=== PATIENT | female | born 1945 | race Caucasian/White ===

== ENCOUNTER 2017-04-06 09:49 | Emergency (ER) | payer MEDICARE, SELFPAY ==
[2017-04-06 10:31] VITALS: BP 152/66; PULSE 85; RESP 18; TEMP 36.8; O2SAT 97; BMI 25.7
--- NOTE | 2017-04-06 10:45 | XR_ITS ---
EXAM: XR lumbar spine min 4V HISTORY: Low back pain following injury ITS.REASON: fell on concrete stairs ORDERING PHYSICIAN: Shin Jo PATIENT AGE: 72 years COMPARISON: None FINDINGS: There is mild lumbar scoliosis convex right. There are severe degenerative disc disease at L1-L2 and moderate to severe degenerative disc disease at L2-L3 with endplate sclerosis and endplate osteophytes. There are slight decrease in height of the L1 vertebral body anteriorly. No fracture or dislocation. No lytic changes apparent. Endplate osteophytes are present at L1-L2 posteriorly and anteriorly IMPRESSION: Degenerative disc disease at L1-L2 and L2-L3. No acute finding
--- NOTE | 2017-04-06 10:45 | XR_ITS ---
XR sacrum coccyx min 2V CLINICAL INDICATION: Pain following injury ITS.REASON: fell on concrete stairs ORDERING PHYSICIAN: Shin Jo PATIENT AGE: 72 years COMPARISON: None FINDINGS: No fracture, dislocation, or other significant anomalies. No abnormal angulation IMPRESSION: Negative sacrum/coccyx
--- NOTE | 2017-04-06 10:45 | XR_ITS ---
XR hip RT 2-3V w/pelvis HISTORY: Posttraumatic pain ITS.REASON: fell on concrete stairs ORDERING PHYSICIAN: Shin Jo PATIENT AGE: 72 years COMPARISON: None FINDINGS: Mild osteoarthritic changes are present involving both hips. No fracture or dislocation. No lytic or blastic change. IMPRESSION: Mild osteoarthritis otherwise negative
--- NOTE | 2017-04-06 10:55 | HMH.EDUTC ---
[facility] [place] Disposition Clinical Impression: Fall from slipping on ice Qualifiers: Encounter type: initial encounter Qualified Code(s): W00.9XXA - Unspecified fall due to ice and snow, initial encounter Contusion, buttock Qualifiers: Encounter type: initial encounter Qualified Code(s): S30.0XXA - Contusion of lower back and pelvis, initial encounter Disposition: Home, Self-Care Condition on Discharge: Good Instructions: DI for Contusion, How To Perform RICE (Rest, Ice, Compress, Elevate) Additional Instructions: * movement as tolerated. Avoid anything too strenous and avoid sitting/laying for prolonged time as it can increase stiffness * you are welcome to return to work tomorrow if you would like but avoid heavy lifting, pulling, pushing, etc * Rest * ice 15-20 mins 3-4 times a day * You don't have to take anything for pain if you don't want/need Referrals: Ab Monreal [Family Provider] - (IMMEDIATELY for new or worsening symptoms OR no noticeable improvement over the next 3-5 days) Forms: Work/School Release Time of Disposition: 12:14 Medical Decision Making Vital Signs: 04/06/17 10:31 Temperature 98.2 F Temperature Source Temporal Artery Scan Pulse Rate [Left] 85 Respiratory Rate 18 Blood Pressure [Right Arm] 152/66 Blood Pressure Mean [Right Arm] 94 Blood Pressure Source [Right Arm] Automatic Cuff Blood Pressure Position [Right Arm] Sitting 02 Sat by Pulse Oximetry 97 Oxygen Delivery Method Room Air Orders (Tests/Meds): ORDERS Category Date Time Status XR hip RT 2-3V w/pelvis Stat Exams 04/06/17 10:45 Taken XR lumbar spine min 4V Stat Exams 04/06/17 10:45 Taken XR sacrum coccyx min 2V Stat Exams 04/06/17 10:45 Taken - Radiology Data #1 Image(s): L-Spine, Hip (right), Other (sacrum/coccyx) Image Reviewed: Yes I reviewed the patient's radiology image, Yes I reviewed the patient's radiology image w/the ED provider Dr. Menendez, DEB GREY and I rvwd xrays and no fractures, dislocations. Arthritis present. Pt admits to that chronically. - Ehsan Inquiry Pt receiving controlled substance: No [facility] [place] HPI - General Stated complaint: AO [id number] RIGHT HIP AND HAND Time Seen by Provider: 04/06/17 10:40 Mode of Arrival: Ambulatory Source of Information: Patient Limitations: No Limitations Description of Symptoms (Recalled from Triage Doc. by RN): FELL AY HOME, RIGHT LOW BACK PAIN HEENT Symptoms (Recalled from RN notes): No Resp Symptoms (Recalled from RN notes): No Skin Symptoms (Recalled from RN notes): No MS Symptoms (Recalled from RN notes): Yes Functional Status (Recalled from RN notes): N - History of Present Illness Provider Complaint: Here w/ daughter in law c/o right low back/hip pain s/p fall this morning around 0830. Reports she was on her way to work. Walked down wood steps without difficulty but when she stepped on last two steps (concrete steps), she slipped, landing she believes with right side of butt on edge of step. Tried bracing fall with right hand. Reports palm and right elbow feel a little sore but FROM and just feels bruised . Here primarily due to back/hip. Does not want imaging of hand/elbow. They will be fine . Has not taken or tried anything for pain. Declines multiple offers already for medication. I don't like to take anything. Just let me shed a few tears and find out if I cracked anything. That is all. - Related Data Home Medications Medication Instructions Recorded Confirmed Lisinopril [Lisinopril 10mg Tab] 10 mg PO DAILY 04/06/17 04/06/17 Meloxicam 15 mg PO DAILY 04/06/17 04/06/17 Allergies Allergy/AdvReac Type Severity Reaction Status Date / Time IV DYE Allergy Mild REDNESS Uncoded 04/06/17 10:36 HYDROCODONE Allergy Unknown CHILDERS/VOMITING Uncoded 03/17/17 15:15 - Worker's Comp Is this a Worker's Comp case?: Yes [facility] History I have reviewed the patient's past medical history: Yes Medical History: Reports:: Aneurysm, Hypertension Other Medical
--- NOTE | 2017-04-06 11:00 | ED_ITS ---
[facility] [place] Disposition Clinical Impression: Fall from slipping on ice Qualifiers: Encounter type: initial encounter Qualified Code(s): W00.9XXA - Unspecified fall due to ice and snow, initial encounter Contusion, buttock Qualifiers: Encounter type: initial encounter Qualified Code(s): S30.0XXA - Contusion of lower back and pelvis, initial encounter Disposition: Home, Self-Care Condition on Discharge: Good Instructions: DI for Contusion, How To Perform RICE (Rest, Ice, Compress, Elevate) Additional Instructions: * movement as tolerated. Avoid anything too strenous and avoid sitting/laying for prolonged time as it can increase stiffness * you are welcome to return to work tomorrow if you would like but avoid heavy lifting, pulling, pushing, etc * Rest * ice 15-20 mins 3-4 times a day * You don't have to take anything for pain if you don't want/need Referrals: Ab Monreal [Family Provider] - (IMMEDIATELY for new or worsening symptoms OR no noticeable improvement over the next 3-5 days) Forms: Work/School Release Time of Disposition: 12:14 Medical Decision Making Vital Signs: 04/06/17 10:31 Temperature 98.2 F Temperature Source Temporal Artery Scan Pulse Rate [Left] 85 Respiratory Rate 18 Blood Pressure [Right Arm] 152/66 Blood Pressure Mean [Right Arm] 94 Blood Pressure Source [Right Arm] Automatic Cuff Blood Pressure Position [Right Arm] Sitting 02 Sat by Pulse Oximetry 97 Oxygen Delivery Method Room Air Orders (Tests/Meds): ORDERS Category Date Time Status XR hip RT 2-3V w/pelvis Stat Exams 04/06/17 10:45 Taken XR lumbar spine min 4V Stat Exams 04/06/17 10:45 Taken XR sacrum coccyx min 2V Stat Exams 04/06/17 10:45 Taken - Radiology Data #1 Image(s): L-Spine, Hip (right), Other (sacrum/coccyx) Image Reviewed: Yes I reviewed the patient's radiology image, Yes I reviewed the patient's radiology image w/the ED provider Dr. Menendez, DEB GREY and I rvwd xrays and no fractures, dislocations. Arthritis present. Pt admits to that chronically. - Ehsan Inquiry Pt receiving controlled substance: No [facility] [place] HPI - General Stated complaint: AO [id number] RIGHT HIP AND HAND Time Seen by Provider: 04/06/17 10:40 Mode of Arrival: Ambulatory Source of Information: Patient Limitations: No Limitations Description of Symptoms (Recalled from Triage Doc. by RN): FELL AY HOME, RIGHT LOW BACK PAIN HEENT Symptoms (Recalled from RN notes): No Resp Symptoms (Recalled from RN notes): No Skin Symptoms (Recalled from RN notes): No MS Symptoms (Recalled from RN notes): Yes Functional Status (Recalled from RN notes): N - History of Present Illness Provider Complaint: Here w/ daughter in law c/o right low back/hip pain s/p fall this morning around 0830. Reports she was on her way to work. Walked down wood steps without difficulty but when she stepped on last two steps (concrete steps), she slipped, landing she believes with right side of butt on edge of step. Tried bracing fall with right hand. Reports palm and right elbow feel a little sore but FROM and just feels bruised . Here primarily due to back/hip. Does not want imaging of hand/elbow. They will be fine . Has not taken or tried anything for pain. Declines multiple offers already for medication. I don 't like to take anything. Just let me shed a few tears and find out if I cracked anything. That is all. - Related Data Home Medications
== END 2017-04-06 12:15 | disposition home or self-care (01) ==
PROVIDERS: Emergency Provider Nurse Practitioner Family; Family Provider Pediatrics; PCP Family Medicine Addiction Medicine
DX: S30.0XXA Contusion of lower back and pelvis, initial encounter (principal); W00.9XXA Unspecified fall due to ice and snow, initial encounter; I10 Essential (primary) hypertension
CPT/HCPCS: G0463; 72110; 72220; 73502; 99202

== ENCOUNTER 2018-06-01 19:19 | Observation (INO) ==
--- NOTE | 2018-06-01 20:25 | Emergency Department Note ---
ED Disposition Clinical Impression: Lumbar disc disease with radiculopathy, Intractable back pain Contusion of hip, left Qualifiers: Encounter type: initial encounter Qualified Code(s): S70.02XA - Contusion of left hip, initial encounter Disposition: Admitted as Observation Condition on Discharge: Good Referrals: Ab Monreal [Primary Care Provider] - - Critical Care Critical Care Time: No Attestation: On 06/01/18, the high probability of a clinically significant, sudden or life threatening deterioration of the following system(s) required my full and direct attention, intervention and personal management. The time I documented below is in addition to time spent performing reported procedures but includes the follow ing listed in this critical care notation. Medical Decision Making - Medical Records Medical records reviewed: Yes: I reviewed the patient's medical records. - Ehsan Inquiry Pt receiving controlled substance: No Vital Signs: 06/01/18 19:20 06/01/18 19:49 06/01/18 20:41 Temperature 98.2 F Temperature Source Oral Pulse Rate [Left Brachial] 87 82 82 Respiratory Rate 16 16 18 Blood Pressure [Left Arm] 129/72 132/73 177/77 H Blood Pressure Mean [Left Arm] 91 92 110 Blood Pressure Source [Left Arm] Automatic Cuff Automatic Cuff Automatic Cuff Blood Pressure Position [Left Arm] Supine Supine Supine 02 Sat by Pulse Oximetry 100 100 96 Oxygen Delivery Method Room Air Room Air Room Air 06/01/18 22:06 Temperature Temperature Source Pulse Rate [Left Brachial] 88 Respiratory Rate 16 Blood Pressure [Left Arm] 137/59 L Blood Pressure Mean [Left Arm] 85 Blood Pressure Source [Left Arm] Automatic Cuff Blood Pressure Position [Left Arm] Sitting 02 Sat by Pulse Oximetry 98 Oxygen Delivery Method Room Air - Lab Data Lab results reviewed: Yes: I reviewed the patient's lab results. Lab Results 06/01/18 21:05: WBC 6.7, RBC 3.66 L, Hgb 11.8 L, Hct 34.9 L, MCV 95.4, MCH 32.2 H, MCHC 33.8, RDW 13.2, Plt Count 188, MPV 7.7, Neut % (Auto) 80.0, Lymph % (Auto) 14.6, [place] % (Auto) 4.6, Eos % (Auto) 0.4, Baso % (Auto) 0.4, Neut # (Auto) 5.4, Lymph # (Auto) 1.0, [place] # (Auto) 0.3, Eos # (Auto) 0.0, Baso # (Auto) 0.0 06/01/18 21:05: Sodium 140, Potassium 3.9, Chloride 105, Carbon Dioxide 24, Anion Gap 14.9, BUN 31 H, Creatinine 0.87, Estimated Creat Clear 57, Estimated GFR 64, Est GFR ( Amer) 78, Glucose 122 H, Calcium 8.6, Total Bilirubin 0.5, AST 43 H, ALT 42, Alkaline Phosphatase 62, Total Protein 7.0, Albumin 3.7, Globulin 3.3 H, Albumin/Globulin Ratio 1.1 Result diagrams: 06/01/18 21:05 06/01/18 21:05 Orders (Tests/Meds): ED MEDICATIONS Generic Name Dose Route Start Last Admin Trade Name Freq PRN Reason Stop Dose Admin Sodium Chloride 10 ml 06/01/18 19:38 Saline Flush 10ml Syringe IV 07/01/18 19:37 NEEDED PRN Maintain IV Site Discontinued Medications Generic Name Dose Route Start Last Admin Trade Name Freq PRN Reason Stop Dose Admin Ketorolac Tromethamine 30 mg 06/01/18 22:15 Toradol 30mg/Ml Vial IV 06/01/18 22:16 ONCE ONE Methylprednisolone Sodium Succinate 125 mg 06/01/18 22:24 Solu-Medrol 125mg/2ml Vial IV 06/01/18 22:25 ONCE ONE Morphine Sulfate 4 mg 06/01/18 19:48 06/01/18 19:56 Morphine 4mg/Ml Syringe IV 06/01/18 19:49 4 mg ONCE ONE Administration Ondansetron HCl 4 mg 06/01/18 19:48 06/01/18 19:56 Zofran 4mg/2ml Vial IV 06/01/18 19:49 4 mg ONCE ONE Administration ORDERS Category Date Time Status CT cervical spine wo con Stat Cat Scan 06/01/18 19:[address] head/brain wo con Stat Cat Scan 06/01/18 19:[address] hip LT wo con Stat Cat Scan 06/01/18 20:[address] lumbar spine wo con Stat Cat Scan 06/01/18 20:[address] pelvis wo con Stat Cat Scan 06/01/18 20:52 Taken XR chest AP Stat Exams 06/01/18 19:35 Taken XR hip LT 2-3V w/pelvis Stat Exams 06/01/18 19:35 Taken - Radiology Data #1 Image(s): Chest, Pelvis Image Reviewed: Yes I reviewed the patient's radiology image Preliminary Findings: No Fracture Seen - CT Data CT Scan: Head, C-Spine, Pelvis, L-Spine Time Received: 22:[address] Reviewed: Yes: I have viewed the radiologist's interpretation Preliminary Findings: No Fracture Seen - Physician Consults Physician Consulted: sujata Reason -: Admission Fall HPI - General Chief Complaint: Fall Stated Complaint: Fall Time Seen by Provider: 06/01/18 20:10 Mode of Arrival: EMS Limitations: No Limitations Description of Symptoms (Recalled from ER Triage Doc. by RN): Pt fell on the ice, impact to her left hip. Is now c/o of pain in left hip area. She denies any other injuries or pain. No LOC , pt is A/A. - History of Present Illness HPI Narrative: slipped on ice with lt lower back and hip pain with dec mov and unable to bear wt - no syncope MD complaint: fall Onset (ago): hour(s) Fall from: standing Fall witnessed: yes, by family Place fall occurred: home Loss of consciousness: none Prolonged down time: no Context: tripped/slipped Location of injury: back, pelvis, buttocks Severity: moderate Associated symptoms (after fall): denies - Related Data Home Medications Medication Instructions Recorded Confirmed Lisinopril [Lisinopril 10mg Tab] 10 mg PO DAILY 04/06/17 06/01/18 Meloxicam 15 mg PO DAILY 04/06/17 06/01/18 Tamoxifen Citrate 20 mg PO DAILY 06/01/18 06/01/18 Allergies Allergy/AdvReac Type Severity Reaction Status Date / Time IV DYE Allergy Mild REDNESS Uncoded 04/06/17 10:36 HYDROCODONE Allergy Unknown CHILDERS/VOMITING Uncoded 03/17/17 15:15 [facility] History - Hepatitis A Screen Drug use history?: No High risk sexual behaviors?: No History of sexually transmitted infection?: No Currently employed?: No Childcare worker?: No Do you have indoor plumbing?: Yes Do you have electricity?: Yes Attestation statement:: This patient has been screened for Hepatitis A risk factors. I have reviewed the patient's past medical history: Yes Medical History: Reports:: Aneurysm, Hypertension Denies:: Diabetes Mellitus Type 1, Diabetes Mellitus Type 2 Other Medical History: Reports: Arthritis Comment: IBS, breast CA (just completed radiation and chemo w/in last 2-3 months) Laterality Cases: Right: Carotid Endarterectomy Comment: hysterectomy 1981, brain aneursym, multiple breast lumpectomys (benign in 1999 and + CA in 2017), mario - Social History Alcohol Intake: never Alcohol Intake Frequency:: 0-2 drinks per day Occupational Status: employed Housing: house - Psychiatric History Expresses thoughts of harming self/others: None Suicide Plan Description: No Plan ROS Obtained: Yes All systems reviewed & no additional complaints - Constitutional Constitutional: Denies fever(s) - Eyes Eyes: Denies change in vision - ENT Ears, Nose, Mouth, and Throat: Denies sore throat - Cardiovascular Cardiovascular: Denies chest pain - Respiratory Respiratory: No cough - Gastrointestinal Gastrointestingal: Denies: abdominal pain - Genitourinary Female Genitourinary: Denies hematuria - Musculoskeletal Musculoskeletal: Reports as per HPI, Reports joint pain, Reports back pain, Reports limited range of motion, Denies neck pain - Integumentary/Breasts Skin/Breast: Denies rash - Neurologic Neurologic: Denies abnormal speech, Denies headache(s), Reports seizure-like activity Physical Exam - General General appearance: alert, in no apparent distress - Head Head exam: normocephalic - Eye Eye exam: Present: PERRL, EOMI. Absent: scleral icterus - ENT ENT exam: Present: mucous membranes moist - Neck Neck exam: Present: trachea midline - Respiratory Respiratory exam: Present: normal lung sounds bilaterally. Absent: respiratory distress - Cardiovascular Cardiovascular exam: Present: regular rate, systolic murmur - Abdominal Exam Abdominal exam: Present: soft. Absent: tenderness - Extremities Exam Extremities exam: Present: normal inspection. Absent: full ROM - Back Exam Back exam: Present: paraspinal tenderness, straight leg raise (L) Comment: pelvis - Neurological Exam Neurological exam: Present: alert, oriented X3, CN II-XII intact - Psychiatric Psychiatric exam: Present: normal affect - Skin Skin exam: Absent: rash
[2018-06-01 21:12] LABS: Basophils % 0.4 % (0.1-2.0); Eosinophils % 0.4 % (0.1-12.0); Hematocrit 34.9 % (37.0-47.0); Hemoglobin 11.8 g/dL (12.2-16.2); Lymphocytes % 14.6 % (10-50); Mean Corpuscular HGB Conc 33.8 g/dL (31.8-35.4); Mean Corpuscular Hemoglobin 32.2 pg (27.0-31.2); Mean Corpuscular Volume 95.4 fl (81-99); Mean Platelet Volume 7.7 fl (7.4-10.4); Monocytes # 0.3 K/mm3 (0.1-1.0); Monocytes % 4.6 % (1.7-9.3); Neutrophils # 5.4 K/mm3 (1.8-7.8); Platelet Count 188 K/mm3 (142-424); Red Blood Count 3.66 M/mm3 (4.20-5.40); Red Cell Distribution Width 13.2 % (11.5-17.5); White Blood Count 6.7 K/mm3 (4.8-10.8)
[2018-06-01 21:34] LABS: Albumin Level 3.7 gm/dL (3.4-5.0); Albumin/Globulin Ratio 1.1 (1.1-1.8); Anion Gap 14.9 mEq/L (5-15); Bilirubin,Total 0.5 mg/dL (0.2-1.0); Calcium 8.6 mg/dL (8.5-10.1); Globulin 3.3 gm/dl (1.3-3.2); Potassium 3.9 mmoL/L (3.5-5.1)
--- NOTE | 2018-06-02 07:38 | Pharmacy Consult Notes ---
[facility] Pharmacy VTE Monitoring - Patient Demographics Admission date: 06/01/18 Report Date: 06/02/18 Time: 07:38 Allergies/Adverse Reactions: Patient Allergies IV DYE Allergy (Mild, Uncoded 04/06/17 10:36) REDNESS HYDROCODONE Allergy (Unknown, Uncoded 03/17/17 15:15) CHILDERS/VOMITING Height: 1.65 m Weight: 70.845 kg Patient Problems: Current Active Problems Lumbar disc disease with radiculopathy (Acute) Contusion of hip, left (Acute) Intractable back pain (Acute) - VTE Risk Labs: VTE Related Lab Results Hgb 11.8 g/dL (12.2-16.2) L 06/01/18 21:05 Hct 34.9 % (37.0-47.0) L 06/01/18 21:05 Plt Count 188 K/mm3 (142-424) 06/01/18 21:05 BUN 31 mg/dL (7-18) H 06/01/18 21:05 Creatinine 0.87 mg/dL (0.55-1.02) 06/01/18 21:05 Estimated Creat Clear 57 mL/min (50-200) 06/01/18 21:05 VTE Score: 5 VTE Risk Level: Low Risk - Prophylaxis VTE Prophylaxis Ordered?: Yes Types of VTE Prophylaxis: TEDS Knee High Location of Applied Device: Bilateral Lower Extremeties - VTE Diagnosis Confirmed Treatment or plan recommended: Continue Current Treatment
[2018-06-02 07:49] LABS: Eosinophils % 0.1 % (0.1-12.0); Hematocrit 37.1 % (37.0-47.0); Hemoglobin 12.5 g/dL (12.2-16.2); Lymphocytes # 0.5 K/mm3 (0.7-4.5); Lymphocytes % 7.8 % (10-50); Mean Corpuscular HGB Conc 33.6 g/dL (31.8-35.4); Mean Corpuscular Hemoglobin 32.3 pg (27.0-31.2); Mean Corpuscular Volume 96.2 fl (81-99); Mean Platelet Volume 7.8 fl (7.4-10.4); Monocytes # 0.1 K/mm3 (0.1-1.0); Monocytes % 1.8 % (1.7-9.3); Neutrophils # 5.1 K/mm3 (1.8-7.8); Neutrophils % 90.2 % (37.0-80.0); Platelet Count 190 K/mm3 (142-424); Red Blood Count 3.86 M/mm3 (4.20-5.40); Red Cell Distribution Width 13.2 % (11.5-17.5); White Blood Count 5.7 K/mm3 (4.8-10.8)
[2018-06-02 07:50] LABS: Anion Gap 15.3 mEq/L (5-15); Calcium 8.7 mg/dL (8.5-10.1); Potassium 4.3 mmoL/L (3.5-5.1)
--- NOTE | 2018-06-02 08:47 | History & Physical Report ---
*Admission Date: 06/01/18 <Norma Darden 06/02/18 09:11> *Chief complaint: Left hip and back pain <Norma Darden 06/02/18 09:11> *History of present illness: Ms. Bhatt is a 73-year old white female who is a patient of Dr. Avery in [facility] with a history of breast cancer, hypertension, and lymphedema who with entering her home after coming home from work last evening slipped and fell on the ice when entering through the door of her home. She landed on her left side. She was unable to walk and could hardly move. She was able to drag herself inside the door. She called her son who summoned an ambulance and she was brought to the hospital emergency room for evaluation. She states she could hardly move let alone walk. She was evaluated in the emergency room with multiple x-rays and CT scans. No fractures were evident. She was started on IV steroids and given IV pain medicine. She was admitted for further observation and pain management. This a.m. patient can manage to move her left leg but with much discomfort. She states she did sleep about 2 hours. <Norma Darden 06/02/18 09:11> [facility] History Medical History: Reports:: Aneurysm, Cancer (Breast cancer on tamoxifen), Gastro esophageal Reflux Disease(GERD), Hypertension Denies:: Atherosclerotic Heart Disease, Coronary Artery Disease, Cerebrovascular Accident, Dementia, Depression, Diabetes Mellitus Type 1, Diabetes Mellitus Type 2, Seizures <Norma Darden 06/02/18 09:11> *Have you ever received a pneumonia vaccine?: Yes <Norma Darden 06/02/18 09:11> *Have you received a flu vaccine this season?: Yes <Norma Darden 06/02/18 09:11> Other Medical History: Reports: Arthritis. Denies: Hypothyroidism <Norma Darden 06/02/18 09:11> Laterality Cases: Right: Carotid Endarterectomy, Lumpectomy <Norma Darden 06/02/18 09:11> Other Surgeries: Yes: Appendectomy, Cholecystectomy, Colon Resection, Hysterectomy-Total, Skin Cancer Excision, Other (RT CAROTID ENDARTERECTOMY) <Norma Darden 06/02/18 09:11> Amputation: No <Norma Darden 06/02/18 09:11> Fractures: Yes (TIP LITTLE FINGER FX TWICE) <Norma Darden 06/02/18 09:11> Comment: She has had a craniotomy with metal plate insertion for aneurysm <Darden,Norma 06/02/18 09:11> - *Social History Educational Level: Attended College <KatalinaNorma 06/02/18 09:11> Smoking Status: Never smoker <Norma Darden 06/02/18 09:11> Alcohol Intake: current <KatalinaNorma 06/02/18 09:11> Alcohol Intake Frequency:: 0-2 drinks per day <Norma Darden 06/02/18 09:11> *Occupational Status:: employed (She works 35 hours a week at [employer]) <Darden,Norma 06/02/18 09:11> Housing: house <KatalinaNorma 06/02/18 09:11> Household Members: family <KatalinaNorma 06/02/18 09:11> *Travel in the last 8 weeks: None <Norma Darden 06/02/18 09:11> - Psychiatric History Expresses thoughts of harming self/others: None <Norma Darden 06/02/18 09:11> Suicide Plan Description: No Plan <Norma Darden 06/02/18 09:11> Family Hx:: Hyperlipidemia, Hypertension, Kidney Disease, Stroke, no Diabetes <Norma Darden 06/02/18 09:11> Review of Systems - Constitutional Denies headache(s), Denies weakness <Norma Darden 06/02/18 09:11> - ENT Denies ear pain, Denies sore throat <Norma Darden 06/02/18 09:11> - *Cardiovascular Denies chest pain, Denies shortness of breath, Denies irregular heart rhythm, Denies leg swelling <Norma Darden 06/02/18 09:11> - *Respiratory Denies chest congestion, Denies cough, Denies shortness of breath <Norma Darden 06/02/18 09:11> - *Gastrointestinal Reports heartburn, Denies abdominal pain, Denies change in bowel habits, Denies bright, red blood in stools, Denies black, tarry stools, Denies nausea, Denies vomiting <Norma Darden - 06/02/18 09:11> - *Genitourinary Denies difficulty urinating <Norma Darden - 06/02/18 09:11> - *Musculoskeletal Reports limited joint movement <Norma Darden - 06/02/18 09:11> Comments: Has not walked or stood since her fall. Usually has no difficulty with walking. 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 <Norma Darden - 06/02/18 09:11> - *Neurologic Reports seizure-like activity, Denies abnormal speech, Denies headache(s) <Norma Darden 06/02/18 09:11> Meds Home Medications Medication Instructions Recorded Confirmed Type Meloxicam 15 mg PO DAILY 04/06/17 06/01/18 History Tamoxifen Citrate 20 mg PO DAILY 06/01/18 06/01/18 History Lisinopril/Hydrochlorothiazide 1 tab PO BID 06/02/18 06/02/18 History [Lisinopril-Hctz 10-12.5 mg Tab] <Henry Corcoran - 06/02/18 10:56> Allergies Allergy/AdvReac Type Severity Reaction Status Date / Time hydrocodone Allergy Unknown Headache Verified 06/02/18 08:28 Iodinated Contrast Media - Allergy Unknown Redness of Verified 06/02/18 08:28 Oral and Skin <Henry Corcoran - 06/02/18 10:56> Exam Vital signs and Labs for Last 24 Hours: Temp Pulse Resp BP Pulse Ox 98.8 F 79 15 134/66 99 06/02/18 07:23 06/02/18 07:23 06/02/18 07:23 06/02/18 07:23 06/02/18 08:00 Laboratory Results - last 24 hr 06/01/18 21:05: WBC 6.7, RBC 3.66 L, Hgb 11.8 L, Hct 34.9 L, MCV 95.4, MCH 32.2 H, MCHC 33.8, RDW 13.2, Plt Count 188, MPV 7.7, Neut % (Auto) 80.0, Lymph % (Auto) 14.6, Ferry % (Auto) 4.6, Eos % (Auto) 0.4, Baso % (Auto) 0.4, Neut # (Auto) 5.4, Lymph # (Auto) 1.0, Ferry # (Auto) 0.3, Eos # (Auto) 0.0, Baso # (Auto) 0.0 06/01/18 21:05: Sodium 140, Potassium 3.9, Chloride 105, Carbon Dioxide 24, Anion Gap 14.9, BUN 31 H, Creatinine 0.87, Estimated Creat Clear 57, Estimated GFR 64, Est GFR ( Amer) 78, Glucose 122 H, Calcium 8.6, Total Bilirubin 0.5, AST 43 H, ALT 42, Alkaline Phosphatase 62, Total Protein 7.0, Albumin 3.7, Globulin 3.3 H, Albumin/Globulin Ratio 1.1 06/02/18 07:12: WBC 5.7, RBC 3.86 L, Hgb 12.5, Hct 37.1, MCV 96.2, MCH 32.3 H, MCHC 33.6, RDW 13.2, Plt Count 190, MPV 7.8, Neut % (Auto) 90.2 H, Lymph % (Auto) 7.8 L, Ferry % (Auto) 1.8, Eos % (Auto) 0.1, Baso % (Auto) 0.0 L, Neut # (Auto) 5.1, Lymph # (Auto) 0.5 L, Ferry # (Auto) 0.1, Eos # (Auto) 0.0, Baso # (Auto) 0.0, Total Counted 100, Neutrophils % (Manual) 93 H, Lymphocytes % (Manual) 4 L, Atypical Lymphs % 2.0, Monocytes % (Manual) 1 L, Platelet Estimate Normal 06/02/18 07:12: Sodium 138, Potassium 4.3, Chloride 103, Carbon Dioxide 24, Anion Gap 15.3 H, BUN 36 H, Creatinine 1.05 H D, Estimated Creat Clear 55, Estimated GFR 52 L, Est GFR ( Amer) 63, Glucose 154 H D, Calcium 8.7 <Henry Corcoran - 06/02/18 10:56> Temp Pulse Resp BP Pulse Ox 98.8 F 79 15 134/66 97 06/02/18 07:23 06/02/18 07:23 06/02/18 07:23 06/02/18 07:23 06/02/18 07:23 Laboratory Results - last 24 hr 06/01/18 21:05: WBC 6.7, RBC 3.66 L, Hgb 11.8 L, Hct 34.9 L, MCV 95.4, MCH 32.2 H, MCHC 33.8, RDW 13.2, Plt Count 188, MPV 7.7, Neut % (Auto) 80.0, Lymph % (Auto) 14.6, Ferry % (Auto) 4.6, Eos % (Auto) 0.4, Baso % (Auto) 0.4, Neut # (Auto) 5.4, Lymph # (Auto) 1.0, Ferry # (Auto) 0.3, Eos # (Auto) 0.0, Baso # (Auto) 0.0 06/01/18 21:05: Sodium 140, Potassium 3.9, Chloride 105, Carbon Dioxide 24, Anion Gap 14.9, BUN 31 H, Creatinine 0.87, Estimated Creat Clear 57, Estimated GFR 64, Est GFR ( Amer) 78, Glucose 122 H, Calcium 8.6, Total Bilirubin 0.5, AST 43 H, ALT 42, Alkaline Phosphatase 62, Total Protein 7.0, Albumin 3.7, Globulin 3.3 H, Albumin/Globulin Ratio 1.1 06/02/18 07:12: WBC 5.7, RBC 3.86 L, Hgb 12.5, Hct 37.1, MCV 96.2, MCH 32.3 H, MCHC 33.6, RDW 13.2, Plt Count 190, MPV 7.8, Neut % (Auto) 90.2 H, Lymph % (Auto) 7.8 L, Ferry % (Auto) 1.8, Eos % (Auto) 0.1, Baso % (Auto) 0.0 L, Neut # (Auto) 5.1, Lymph # (Auto) 0.5 L, Ferry # (Auto) 0.1, Eos # (Auto) 0.0, Baso # (Auto) 0.0 06/02/18 07:12: Sodium 138, Potassium 4.3, Chloride 103, Carbon Dioxide 24, Anion Gap 15.3 H, BUN 36 H, Creatinine 1.05 H D, Estimated Creat Clear 55, Estimated GFR 52 L, Est GFR ( Amer) 63, Glucose 154 H D, Calcium 8.7 <Norma Darden 06/02/18 09:11> I & O for Last 24 hours: Intake & Output 05/30/18 05/31/18 06/01/18 06/02/18 11:59 11:59 11:59 11:59 Intake Total 240 / 240 Balance 240 / 240 Weight 156 lb 3 oz <Henry Corcoran - 06/02/18 10:56> Intake & Output 05/30/18 05/31/18 06/01/18 06/02/18 11:59 11:59 11:59 11:59 Intake Total 240 / 240 Balance 240 / 240 Weight 156 lb 3 oz <Norma Darden 06/02/18 09:11> - Constitutional no acute distress <Norma Darden 06/02/18 09:11> Comments: Sitting up in the bed eating her breakfast <Norma Darden 06/02/18 09:11> - *Routine HEENT Exam Head: Present: normocephalic, atraumatic <Norma Darden 06/02/18 09:11> Eye: Present: PERRL. Absent: conjunctival icterus, scleral injection <Norma Darden 06/02/18 09:11> ENT: Present: mucous membranes moist, oropharynx clear <Norma Darden 06/02/18 09:11> - *Routine Neck Exam Present: supple. Absent: carotid bruit, lymphadenopathy, thyromegaly <Norma Darden 06/02/18 09:11> - *Routine Respiratory Exam Present: CTA bilaterally (Anteriorly and posteriorly) <Norma Darden 06/02/18 09:11> - *Routine Cardiovascular Exam Present: RRR <Norma Darden 06/02/18 09:11> Comments: Frequent premature beats <Norma Darden 06/02/18 09:11> - *Routine Abdominal Exam Present: soft, normoactive bowel sounds. Absent: tenderness, distended, guarding <DardenNorma 06/02/18 09:11> - *Routine Extremities Exam Absent: edema <DardenNorma - 06/02/18 09:11> Comments: Full range of bilateral arms and right leg. Difficulty with any movement of the left leg she is able to flex at the knee and the hip with discomfort. <Norma Darden - 06/02/18 09:11> - *Routine Skin Exam Comments: No ecchymosis or soft tissue swelling. Left hip and buttocks tender to palpat ion <Norma Darden - 06/02/18 09:11> - *Routine Neurological Exam Present: alert, oriented X3 <Norma Darden - 06/02/18 09:11> Assessment and Plan (1) Hypertension Current visit: Yes Status: Chronic Category: Medical Code(s): I10 - Essential (primary) hypertension (2) Contusion of hip, left Current visit: Yes Status: Acute Qualifiers: Encounter type: initial encounter Qualified Code(s): S70.02XA - Contusion of left hip, initial encounter Category: Medical Code(s): S70.02XA - Contusion of left hip, initial encounter (3) Intractable back pain Current visit: Yes Status: Acute Category: Medical Code(s): M54.9 - Dorsalgia, unspecified (4) Lumbar disc disease with radiculopathy Current visit: Yes Status: Acute Category: Medical Code(s): M51.16 - Inte rvertebral disc disorders with radiculopathy, lumbar region (5) Contusion, buttock Current visit: No Status: Acute Qualifiers: Encounter type: initial encounter Qualified Code(s): S30.0XXA - Contusion of lower back and pelvis, initial encounter Category: Medical Code(s): S30.0XXA - Contusion of lower back and pelvis, initial encounter (6) Fall from slipping on ice Current visit: No Status: Acute Qualifiers: Encounter type: initial encounter Qualified Code(s): W00.9XXA - Unspecified fall due to ice and snow, initial encounter Category: Medical Code(s): W00.9XXA - Unspecified fall due to ice and snow, initial encounter <Henry Corcoran - 06/02/18 10:56> (1) Hypertension Current visit: Yes Status: Chronic Category: Medical Code(s): I10 - Essential (primary) hypertension (2) Contusion of hip, left Current visit: Yes Status: Acute Qualifiers: Encounter type: initial encounter Qualified Code(s): S70.02XA - Contusion of left hip, initial encounter Category: Medical Code(s): S70.02XA - Contusion of left hip, initial encounter (3) Intractable back pain Current visit: Yes Status: Acute Category: Medical Code(s): M54.9 - Dorsalgia, unspecified (4) Lumbar disc disease with radiculopathy Current visit: Yes Status: Acute Category: Medical Code(s): M51.16 - Intervertebral disc disorders with radiculopathy, lumbar region (5) Contusion, buttock Current visit: No Status: Acute Qualifiers: Encounter type: initial encounter Qualified Code(s): S30.0XXA - Contusion of lower back and pelvis, initial encounter Category: Medical Code(s): S30.0XXA - Contusion of lower back and pelvis, initial encounter (6) Fall from slipping on ice Current visit: No Status: Acute Qualifiers: Encounter type: initial encounter Qualified Code(s): W00.9XXA - Unspecified fall due to ice and snow, initial encounter Category: Medical Code(s): W00.9XXA - Unspecified fall due to ice and snow, initial encounter <Norma Darden - 06/02/18 08:42> - Assessment and plan all Dx Assessment and Plan for all problems:: Patient seen and evaluated this morning. I have reviewed the ER records as well as x-ray and CT scan reports. She has not been out of bed since admission. She is comfortable while laying still. She is able to flex her knee and hip and roll some in the bed but this is painful. We will consult orthopedics and have her seen by physical therapy today. If she can tolerate being up and about in the room, she may discharge home later today. <Henry Corcoran - 06/02/18 10:56> We will continue with steroids and pain management. Consult orthopedics. Consult physical therapy. <Norma Darden - 06/02/18 09:11>
[2018-06-02 09:41] LABS: Lymphocytes % 4 % (10-50); Monocytes % 1 % (2-9); Neutrophils % 93 % (42-76); Total Cells Counted 100
--- NOTE | 2018-06-02 12:45 | Consult Report ---
*Admission Date: 06/01/18 *Chief complaint: left lower extremity pain *History of present illness: 73yo F with left lower extremity pain after a fall on ice last night. She was coming home from work and was crossing her back deck when she saw an icicle hanging from her roof. It was large and she was concerned it would become a safety issue and potentially fall on her small dog, so she hit it with her lunch bag and knocked it onto the deck. She attempted to push it to the side with her foot, but in the process slipped on the ice that covered the deck and fell to the ground. She says she did the "splits" as she fell, and the pain she experienced in her left leg was so severe she could not get off the ground. She denies +LOC during the injury. She was able to drag herself inside the house and yell for her son, whom she lives with, but he did not hear her; she called him on her cell phone and he called EMS for transport to the hospital. She reports pain in the L posterior/medial thigh and buttock region, with occasional sacral/coccygeal pain, but no low back pain. No pain that radiates down the LLE, no numbness or tingling. No loss of bowel/bladder control, no weakness. She has not attempted to stand since the accident because she's afraid she'll injure something further. She has a history of breast cancer, s/p lumpectomy with lymph node dissection (per patient report, have not seen op note). She has been doing therapy in [place] for lymphedema [facility]. She works at [employer], is an independent community ambulator w/o use of assistive device, lives with her son. Review of Systems - Review of Systems Review of systems:: pertinent systems reviewed and negative unless documented below - *Neurologic Reports seizure-like activity, Denies abnormal speech, Denies headache(s), Denies weakness [facility] History Medical History: Reports:: Aneurysm, Cancer (Breast cancer on tamoxifen), Gastroesophageal Reflux Disease(GERD), Hypertension Denies:: Atherosclerotic Heart Disease, Coronary Artery Disease, Cerebrovascular Accident, Dementia, Depression, Diabetes Mellitus Type 1, Diabetes Mellitus Type 2, Seizures *Have you ever received a pneumonia vaccine?: Yes *Have you received a flu vaccine this season?: Yes Other Medical History: Reports: Arthritis. Denies: Hypothyroidism Laterality Cases: Right: Carotid Endarterectomy, Lumpectomy Other Surgeries: Yes: Appendectomy, Cholecystectomy, Colon Resection, Hysterectomy-Total, Skin Cancer Excision, Other (RT CAROTID ENDARTERECTOMY) Amputation: No Fractures: Yes (TIP LITTLE FINGER FX TWICE) - *Social History Educational Level: Attended College Smoking Status: Never smoker Alcohol Intake: current Alcohol Intake Frequency:: 0-2 drinks per day *Occupational Status:: employed (She works 35 hours a week at [employer]) Housing: house Household Members: family *Travel in the last 8 weeks: None - Psychiatric History Expresses thoughts of harming self/others: None Suicide Plan Description: No Plan Pschychiatric History:: Denies:: Depression Family Hx:: Hyperlipidemia, Hypertension, Kidney Disease, Stroke, no Diabetes Meds Home Medications Medication Instructions Recorded Confirmed Type Meloxicam 15 mg PO DAILY 04/06/17 06/01/18 History Tamoxifen Citrate 20 mg PO DAILY 06/01/18 06/01/18 History Lisinopril/Hydrochlorothiazide 1 tab PO BID 06/02/18 06/02/18 History [Lisinopril-Hctz 10-12.5 mg Tab] Allergies Allergy/AdvReac Type Severity Reaction Status Date / Time hydrocodone Allergy Unknown Headache Verified 06/02/18 08:28 Iodinated Contrast Media - Allergy Unknown Redness of Verified 06/02/18 08:28 Oral and Skin Exam Vital signs and Labs for Last 24 Hours: Temp Pulse Resp BP Pulse Ox 98.8 F 79 15 134/66 99 06/02/18 07:23 06/02/18 07:23 06/02/18 07:23 06/02/18 07:23 06/02/18 08:00 Laboratory Results - last 24 hr 06/01/18 21:05: WBC 6.7, RBC 3.66 L, Hgb 11.8 L, Hct 34.9 L, MCV 95.4, MCH 32.2 H, MCHC 33.8, RDW 13.2, Plt Count 188, MPV 7.7, Neut % (Auto) 80.0, Lymph % (Auto) 14.6, Sawyer % (Auto) 4.6, Eos % (Auto) 0.4, Baso % (Auto) 0.4, Neut # (Auto) 5.4, Lymph # (Auto) 1.0, Sawyer # (Auto) 0.3, Eos # (Auto) 0.0, Baso # (Auto) 0.0 06/01/18 21:05: Sodium 140, Potassium 3.9, Chloride 105, Carbon Dioxide 24, Anion Gap 14.9, BUN 31 H, Creatinine 0.87, Estimated Creat Clear 57, Estimated GFR 64, Est GFR ( Amer) 78, Glucose 122 H, Calcium 8.6, Total Bilirubin 0.5, AST 43 H, ALT 42, Alkaline Phosphatase 62, Total Protein 7.0, Albumin 3.7, Globulin 3.3 H, Albumin/Globulin Ratio 1.1 06/02/18 07:12: WBC 5.7, RBC 3.86 L, Hgb 12.5, Hct 37.1, MCV 96.2, MCH 32.3 H, MCHC 33.6, RDW 13.2, Plt Count 190, MPV 7.8, Neut % (Auto) 90.2 H, Lymph % (Auto) 7.8 L, Sawyer % (Auto) 1.8, Eos % (Auto) 0.1, Baso % (Auto) 0.0 L, Neut # (Auto) 5.1, Lymph # (Auto) 0.5 L, Sawyer # (Auto) 0.1, Eos # (Auto) 0.0, Baso # (Auto) 0.0, Total Counted 100, Neutrophils % (Manual) 93 H, Lymphocytes % (Manual) 4 L, Atypical Lymphs % 2.0, Monocytes % (Manual) 1 L, Platelet Estimate Normal 06/02/18 07:12: Sodium 138, Potassium 4.3, Chloride 103, Carbon Dioxide 24, Anion Gap 15.3 H, BUN 36 H, Creatinine 1.05 H D, Estimated Creat Clear 55, Estimated GFR 52 L, Est GFR ( Amer) 63, Glucose 154 H D, Calcium 8.7 I & O for Last 24 hours: Intake & Output 05/31/18 06/01/18 06/02/18 06/03/18 11:59 11:59 11:59 11:59 Intake Total 240 / 240 Balance 240 / 240 Weight 156 lb 3 oz - Constitutional no acute distress, average body habitus, cooperative - *Routine HEENT Exam Head: Present: normocephalic, atraumatic Eye: Present: EOMI ENT: Present: mucous membranes moist - *Routine Respiratory Exam Absent: accessory muscle use, respiratory distress, wheezes - *Routine Extremities Exam Present: pulses intact, tenderness. 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 L medial thigh, increased pain with resisted L hip adduction/passive hip abduction no ecchymosis L hip/thigh/low back no tenderness to palpation over vertebral bodies thoracic/lumbar spines; tested with patient lying right lateral decubitus position mild tenderness over coccyx no pain over pubic symphysis, no pain with lateral compression of the pelvis/iliac wings +DF/PF/EHL LLE, no pain with L knee flexion/extension SILT distally LLE in all distributions palpable pedal pulses LLE, foot warm and well-perfused L calf soft, non-tender, negative Homans negative babinski, no clonus BLE - Routine Back/Spine/Pelvis Exam Back/Spine: Absent: CVA tenderness, paraspinal tenderness, vertebral tenderness Pelvis: Present: buttock tenderness, coccyx tenderness. Absent: buttock ecchymosis, left sciatic notch tenderness, right sciatic notch tenderness, SI joint tenderness, tenderness of the symphysis pubis, pain with lateral compression of the pelvis, sacral tenderness - *Routine Skin Exam Present: intact, warm. Absent: erythema, lesions, ecchymosis - *Routine Neurological Exam Present: alert, oriented X3, normal reflexes, moving all extremities, normal tone. Absent: sensory deficit, motor deficit, altered mental status Results - Labs Result Diagrams: 06/02/18 07:12 06/02/18 07:12 Labs: Abnormal lab results 06/01/18 06/01/18 06/02/18 Range/Units 21:05 21:05 07:12 RBC 3.66 L 3.86 L (4.20-5.40) M/mm3 Hgb 11.8 L (12.2-16.2) g/dL Hct 34.9 L (37.0-47.0) % MCH 32.2 H 32.3 H (27.0-31.2) pg Neut % (Auto) 90.2 H (37.0-80.0) % Lymph % (Auto) 7.8 L (10-50) % Baso % (Auto) 0.0 L (0.1-2.0) % Lymph # (Auto) 0.5 L (0.7-4.5) K/mm3 Neutrophils % (Manual) 93 H (42-76) % Lymphocytes % (Manual) 4 L (10-50) % Monocytes % (Manual) 1 L (2-9) % Anion Gap (5-15) mEq/L BUN 31 H (7-18) mg/dL Creatinine (0.55-1.02) mg/dL Estimated GFR (>60) ml/min Glucose 122 H (74-106) mg/dL AST 43 H (15-37) U/L Globulin 3.3 H (1.3-3.2) gm/dl 06/02/18 Range/Units 07:12 RBC (4.20-5.40) M/mm3 Hgb (12.2-16.2) g/dL Hct (37.0-47.0) % MCH (27.0-31.2) pg Neut % (Auto) (37.0-80.0) % Lymph % (Auto) (10-50) % Baso % (Auto) (0.1-2.0) % Lymph # (Auto) (0.7-4.5) K/mm3 Neutrophils % (Manual) (42-76) % Lymphocytes % (Manual) (10-50) % Monocytes % (Manual) (2-9) % Anion Gap 15.3 H (5-15) mEq/L BUN 36 H (7-18) mg/dL Creatinine 1.05 H D (0.55-1.02) mg/dL Estimated GFR 52 L (>60) ml/min Glucose 154 H D (74-106) mg/dL AST (15-37) U/L Globulin (1.3-3.2) gm/dl H & H 06/01/18 06/02/18 Range/Units 21:05 07:12 Hgb 11.8 L 12.5 (12.2-16.2) g/dL Hct 34.9 L 37.1 (37.0-47.0) % All other labs normal. - Diagnostic results Hip x-ray: report reviewed, image reviewed Hip CT: report reviewed, image reviewed CT Scan - lumbar: report reviewed, image reviewed Assessment and Plan (1) Fall from slipping on ice Current visit: No Status: Acute Qualifiers: Encounter type: initial encounter Qualified Code(s): W00.9XXA - Unspecified fall due to ice and snow, initial encounter Category: Medical Code(s): W00.9XXA - Unspecified fall due to ice and snow, initial encounter (2) Hamstring muscle strain Current visit: Yes Status: Acute Category: Medical Code(s): S76.319A - Strain of muscle, fascia and tendon of the posterior muscle group at thigh level, unspecified thigh, initial encounter (3) Strain of hip adductor muscle Current visit: Yes Status: Acute Category: Medical Code(s): S76.019A - Strain of muscle, fascia and tendon of unspecified hip, initial encounter - Assessment and plan all Dx Assessment and Plan for all problems:: 73yo F with LLE pain s/p slip and fall on ice last night -- imaging negative for fracture; no fracture seen on XR/CT scan of lumbar spine, hip or pelvis. does not exclude stress reaction/bone contusion or small non-displaced fx not seen on CT, but unable to obtain MRI due to patient reporting presence of metal plate on skull (h/o surgery for aneurysm). Should pain fail to improve with PT/time, may consider bone scan if suspicious for fx. -- based on exam and mechanism of injury, I suspect the patient strained hamstrings/hip adductor muscles, but partial tear of hamstrings insertion not excluded; this would not price changer, as both would be treated with therapy. Recommend evaluation by PT and continuation of outpatient PT after discharge. -- recommend ice, NSAIDs, stretching/PT -- ok to d/c home from ortho standpoint, but walker may be beneficial for home at first; f/u with me as an outpatient, in 2-3 weeks
--- NOTE | 2018-06-03 08:15 | Progress Note ---
<Hanh Betancourt - Last Filed: 06/03/18 08:14> Internal Medicine - PN: Subj *Date: 06/03/18 *Time: 08:14 Interval history: Patient states she is feeling better today. She has been able to sit on the side of the bed and in the chair. She has minimal pain today. She slept well last night and is eating breakfast this morning. Exam Vital signs and Labs for Last 24 Hours: Temp Pulse Resp BP Pulse Ox 97.3 F L 94 H 18 140/64 95 06/03/18 07:52 06/03/18 07:52 06/03/18 07:52 06/03/18 07:52 06/03/18 07:52 Laboratory Results - last 24 hr 06/02/18 07:12: Total Counted 100, Neutrophils % (Manual) 93 H, Lymphocytes % (Manual) 4 L, Atypical Lymphs % 2.0, Monocytes % (Manual) 1 L, Platelet Estimate Normal I & O for Last 24 hours: Intake & Output 05/31/18 06/01/18 06/02/18 06/03/18 11:59 11:59 11:59 11:59 Intake Total 240 / 240 520 / 520 Output Total 2850 / 2850 Balance 240 / 240 -2330 / -2330 Weight 156 lb 3 oz - Constitutional no acute distress - *Routine Respiratory Exam Present: CTA bilaterally - *Routine Cardiovascular Exam Present: RRR - *Routine Abdominal Exam Present: soft, normoactive bowel sounds. Absent: tenderness - *Routine Extremities Exam Absent: cyanosis, clubbing, edema Assessment and Plan (1) Fall from slipping on ice Status: Acute Qualifiers: Encounter type: initial encounter Qualified Code(s): W00.9XXA - Unspecified fall due to ice and snow, initial encounter Category: Medical Code(s): W00.9XXA - Unspecified fall due to ice and snow, initial encounter (2) Hamstring muscle strain Status: Acute Category: Medical Code(s): S76.319A - Strain of muscle, fascia and tendon of the posterior muscle group at thigh level, unspecified thigh, initial encounter (3) Strain of hip adductor muscle Status: Acute Category: Medical Code(s): S76.019A - Strain of muscle, fascia and tendon of unspecified hip, initial encounter - Assessment and plan all Dx Assessment and Plan for all problems:: Care management is waiting to see if patient qualifies to go to [facility] for rehab. <Henry Corcoran - Last Filed: 06/03/18 14:23> Exam Vital signs and Labs for Last 24 Hours: Temp Pulse Resp BP Pulse Ox 97.3 F L 94 H 18 140/64 95 06/03/18 07:52 06/03/18 07:52 06/03/18 07:52 06/03/18 07:52 06/03/18 07:52 I & O for Last 24 hours: Intake & Output 06/01/18 06/02/18 06/03/18 06/04/18 11:59 11:59 11:59 11:59 Intake Total 240 / 240 1000 / 1000 Output Total 3550 / 3550 Balance 240 / 240 -2550 / -2550 Weight 156 lb 3 oz Assessment and Plan (1) Fall from slipping on ice Status: Acute Qualifiers: Encounter type: initial encounter Qualified Code(s): W00.9XXA - Unspecified fall due to ice and snow, initial encounter Category: Medical Code(s): W00.9XXA - Unspecified fall due to ice and snow, initial encounter (2) Hamstring muscle strain Status: Acute Category: Medical Code(s): S76.319A - Strain of muscle, fascia and tendon of the posterior muscle group at thigh level, unspecified thigh, initial encounter (3) Strain of hip adductor muscle Status: Acute Category: Medical Code(s): S76.019A - Strain of muscle, fascia and tendon of unspecified hip, initial encounter - Assessment and plan all Dx Assessment and Plan for all problems:: Patient seen and examined. Concur with above. If [facility] is not an option, will plan discharge home with home health.
--- NOTE | 2018-06-04 15:27 | Discharge Summary ---
General - General Admission date:: 06/01/18 Discharge date: 06/03/18 HPI HPI: Ms. Bhatt is a 73-year old white female who is a patient of Dr. Avery in [facility] with a history of breast cancer, hypertension, and lymphedema who with entering her home after coming home from work last evening slipped and fell on the ice when entering through the door of her home. She landed on her left side. She was unable to walk and could hardly move. She was able to drag herself inside the door. She called her son who summoned an ambulance and she was brought to the hospital emergency room for evaluation. She states she could hardly move let alone walk. She was evaluated in the emergency room with multiple x-rays and CT scans. No fractures were evident. She was started on IV steroids and given IV pain medicine. She was admitted for further observation and pain management. This a.m. patient can manage to move her left leg but with much discomfort. She states she did sleep about 2 hours. Hospital Course Hospital Course: Orthopedics was consulted due to patient's pain and lack of ROM. Her x-rays and CTs showed no fracture. Physical therapy was ordered as well. She was continued on steroids and pain management. She was seen by Dr. Watson who did agree that her x-rays and CTs showed no fracture. She felt there could be a stress reaction, bone contusion, or a small displaced fracture not seen on CT, but she was unable to obtain an MRI due to the patient reporting the presence of a metal plate in her skull. She felt if the patient failed to improve, we could consider a bone scan if suspicious for fracture. She suspected that the patient had strained her hamstrings/hip adductor muscles, but a partial tear of the hamstring insertion was not excluded. She felt that this would not roll changer as both would be treated with physical therapy. She recommended ice, NSAIDs, stretching, and physical therapy. She felt she was stable to be discharged home from an orthopedic standpoint and a walker would be beneficial for the patient. She will follow-up with her on an outpatient basis in 2-3 weeks. The patient was evaluated by physical therapy who felt short-term rehab would be beneficial, however her insurance did not cover rehab at [facility], therefore she was stable to be discharged home with home health physical therapy. Objective Vital signs: Temp Pulse Resp BP Pulse Ox 97.3 F L 94 H 18 140/64 95 06/03/18 07:52 06/03/18 07:52 06/03/18 07:52 06/03/18 07:52 06/03/18 07:52 Narrative: - Constitutional no acute distress Comments: Sitting up in the bed eating her breakfast - *Routine HEENT Exam Head: Present: normocephalic, atraumatic Eye: Present: PERRL. Absent: conjunctival icterus, scleral injection ENT: Present: mucous membranes moist, oropharynx clear - *Routine Neck Exam Present: supple. Absent: carotid bruit, lymphadenopathy, thyromegaly - *Routine Respiratory Exam Present: CTA bilaterally (Anteriorly and posteriorly) - *Routine Cardiovascular Exam Present: RRR Comments: Frequent premature beats - *Routine Abdominal Exam Present: soft, normoactive bowel sounds. Absent: tenderness, distended, guarding - *Routine Extremities Exam Absent: edema Comments: Full range of bilateral arms and right leg. Difficulty with any movement of the left leg she is able to flex at the knee and the hip with discomfort. - *Routine Skin Exam Comments: No ecchymosis or soft tissue swelling. Left hip and buttocks tender to palpation - *Routine Neurological Exam Present: alert, oriented X3 DS: Diagnosis - Discharge Diagnosis (1) Fall from slipping on ice Status: Acute (2) Hamstring muscle strain Status: Acute (3) Strain of hip adductor muscle Status: Acute Discharge Plan - Patient Discharge Instructions ACTIVITY: Limited activity DIET: continue same diet Patient Instructions: Low Back Pain, DI for Low Back Pain, How to Prevent Falls - Follow up Plan Follow up with: Pavithra Higgins MD [Staff Physician] - 2 weeks Disposition: Home Health Service Home Medications: Home Medications Medication Instructions Recorded Confirmed Type Meloxicam 15 mg PO DAILY 04/06/17 06/01/18 History Tamoxifen Citrate 20 mg PO DAILY 06/01/18 06/01/18 History Lisinopril/Hydrochlorothiazide 1 tab PO BID 06/02/18 06/02/18 History [Lisinopril-Hctz 10-12.5 mg Tab] Tramadol HCl [Tramadol 50mg 50 - 100 mg PO Q6HP PRN #30 tab 06/03/18 Rx Tab] Prescriptions/Medication Reconciliation: New Tramadol HCl [Tramadol 50mg Tab] 50 - 100 mg PO Q6HP PRN #30 tab PRN Reason: Moderate Pain Continue Meloxicam 15 mg PO DAILY Tamoxifen Citrate 20 mg PO DAILY Lisinopril/Hydrochlorothiazide [Lisinopril-Hctz 10-12.5 mg Tab] 1 tab PO BID
== END 2018-06-03 02:17 | disposition home health service (06) ==
LOC: ER 19:19 → 2ND 19:19
PROVIDERS: ADMIT Family Medicine; ATTEND Family Medicine
CPT/HCPCS: 36415; 70450; 71010; 71045; 72125; 72131; 72192; 73502; 73700; 80048; 80053; 85007; 85025; 96374; 96375; 97116; 97162; 97165; 97530; 97535; 99285; G0378; J2405

== ENCOUNTER 2019-12-24 19:04 | Emergency (ER) | payer MEDICARE, SELFPAY ==
[2019-12-24 19:17] VITALS: BP 136/52; PULSE 96; RESP 17; TEMP 36.6; O2SAT 97; BMI 28.5
--- NOTE | 2019-12-24 19:26 | [facility].EDGENADL ---
ED Disposition Condition on Discharge: Fair - Critical Care Critical Care Time: No <Salvatore Delacruz - Last Filed: 12/24/19 20:14> <Faraz Oreilly - Last Filed: 12/24/19 21:40> Clinical Impression: Colitis, Renal insufficiency Abdominal pain Qualifiers: Abdominal location: lower abdomen, unspecified Qualified Code(s): R10.30 - Lower abdominal pain, unspecified Disposition: Home, Self-Care Instructions: DI for Colitis Additional Instructions: stop septra and use meds and call pcp for follow up and stop mobic Prescriptions: metroNIDAZOLE [Flagyl 500mg Tablet] 500 mg PO Q8H #21 tab Transmission Status: Pending to [facility] # levoFLOXacin [Levaquin 500mg tab] 500 mg PO DAILY #7 tab Transmission Status: Pending to [facility] # Referrals: Ab Monreal [Primary Care Provider] - Attestation: On 12/24/19, the high probability of a clinically significant, sudden or life threatening deterioration of the following system(s) required my full and direct attention, intervention and personal management. The time I documented below is in addition to time spent performing reported procedures but includes the following listed in this critical care notation. Medical Decision Making - Medical Records Medical records reviewed: Yes: I reviewed the patient's medical records. MR Comment: 74-year-old female presents emergency department with hematochezia. She arrives the ED hemodynamically stable, with reassuring vital signs, and looks well on exam. Will get labs, treat with fluid bolus, PPI, Zofran, will reassess. - Ehsan Inquiry Pt receiving controlled substance: No - Lab Data Result diagrams: 12/24/19 19:32 12/24/19 19:32 <Salvatore Delacruz - Last Filed: 12/24/19 20:14> - Lab Data Result diagrams: 12/24/19 19:32 12/24/19 19:32 - CT Data CT Scan: Abdomen, Pelvis Time Received: 21:[address] Reviewed: Yes: I have viewed the radiologist's interpretation Preliminary Findings: Abnormal (see report- colitis ) <Faraz Oreilly - Last Filed: 12/24/19 21:40> Vital Signs: 12/24/19 19:17 12/24/19 20:09 Temperature 97.8 F Temperature Source Oral Pulse Rate [Right Brachial] 96 H 88 Respiratory Rate 17 16 Blood Pressure [Right Arm] 136/52 L 134/59 L Blood Pressure Mean [Right Arm] 80 84 Blood Pressure Source [Right Arm] Automatic Cuff Blood Pressure Position [Right Arm] Sitting 02 Sat by Pulse Oximetry 97 98 Oxygen Delivery Method Room Air Room Air - Lab Data Lab Results 12/24/19 19:23: Stool Occult Blood Positive A 12/24/19 19:32: WBC 12.7 H, RBC 4.16 L, Hgb 14.0, Hct 39.7, MCV 95.4, MCH 33.8 H, MCHC 35.4, RDW 13.9, Plt Count 223, MPV 7.7, Neut % (Auto) 86.8 H, Lymph % (Auto) 8.6 L, Whiteside % (Auto) 4.0, Eos % (Auto) 0.3, Baso % (Auto) 0.2, Neut # (Auto) 11.0 H, Lymph # (Auto) 1.1, Whiteside # (Auto) 0.5, Eos # (Auto) 0.0, Baso # (Auto) 0.0, Total Counted 100, Neutrophils % (Manual) 87 H, Band Neutrophils % 4.0, Lymphocytes % (Manual) 7 L, Monocytes % (Manual) 2, Platelet Estimate Normal, RBC Morphology Normal 12/24/19 19:32: Sodium 138, Potassium 3.9, Chloride 104, Carbon Dioxide 22, Anion Gap 15.9 H, BUN 34 H, Creatinine 1.40 H, Estimated Creat Clear 42, Estimated GFR 37 L, Est GFR ( Amer) 45 L, Glucose 143 H, Calcium 9.5, Total Bilirubin 0.4, AST 40 H, ALT 51, Alkaline Phosphatase 145 H, Total Protein 7.5, Albumin 4.7, Globulin 2.8, Albumin/Globulin Ratio 1.7, Lipase 156 Orders (Tests/Meds): ED MEDICATIONS Generic Name Dose Route Start Last Admin Trade Name Freq PRN Reason Stop Dose Admin Sodium Chloride 1,000 mls @ 999 mls/hr 12/24/19 19:45 12/24/19 19:35 Sod Chlor 0.9% 1000ml Bag IV 12/24/19 20:45 999 mls/hr .Q1H1M AVIVA Administration Levofloxacin 500 mg 12/24/19 21:35 Levaquin 500mg Tab PO 12/24/19 21:36 ONCE ONE Protocol Sodium Chloride 10 ml 12/24/19 19:39 Sodium Chloride 0.9% 10ml Vial IV 01/23/20 19:38 NEEDED
[2019-12-24 19:40] LABS: Basophils % 0.2 % (0.1-2.0); Eosinophils % 0.3 % (0.1-12.0); Hematocrit 39.7 % (37.0-47.0); Lymphocytes # 1.1 K/mm3 (0.7-4.5); Lymphocytes % 8.6 % (10-50); Mean Corpuscular HGB Conc 35.4 g/dL (31.8-35.4); Mean Corpuscular Hemoglobin 33.8 pg (27.0-31.2); Mean Corpuscular Volume 95.4 fl (81-99); Mean Platelet Volume 7.7 fl (7.4-10.4); Monocytes # 0.5 K/mm3 (0.1-1.0); Neutrophils % 86.8 % (37.0-80.0); Platelet Count 223 K/mm3 (142-424); Red Blood Count 4.16 M/mm3 (4.20-5.40); Red Cell Distribution Width 13.9 % (11.5-17.5); White Blood Count 12.7 K/mm3 (4.8-10.8)
--- NOTE | 2019-12-24 19:40 | CT_ITS ---
PROCEDURE: CT ABDOMEN PELVIS W CON CLINICAL INDICATION: LLQ abdominal pain Left lower quadrant abdominal pain with blood in stools and vomiting, history of breast cancer COMPARISON: CT ABDPELW/O CT ABD PELVIS W/O CONTRAST from 10/29/2014 TECHNIQUE: IV Contrast: 75ML OPTIRAY 350 Oral Contrast None Axial images obtained with sagittal and coronal reformats. All CT scans at the facility use one or more dose reduction, viz: automated exposure control, ma/kV adjustment per patient size (including targeted exams where dose is matched to indication, i.e. head), or iterative reconstruction technique. FINDINGS: LOWER THORAX: There is a 6 mm noncalcified nodule in the subpleural region of the right middle lobe. ABDOMEN & PELVIS: Fatty liver. Prior cholecystectomy. The spleen, adrenal glands, pancreas, and kidneys have an unremarkable appearance. There is diffuse thickening of the antrum and pyloric region of the stomach in of the duodenum suggesting underlying inflammatory changes. There is mild thickening of the anterior pararenal fascia on the right. Small hiatal hernia. No intestinal obstruction or free air. There is also thickening of the descending and sigmoid colon with minimal haziness of the pericolic fat in the descending colon and proximal sigmoid colon. There is diverticulosis of the sigmoid colon. No convincing evidence of diverticulitis. Prior appendectomy and hysterectomy. There is degenerative disc disease at L1-L2 with endplate sclerosis. A Schmorl's node is present along the superior endplate of L5. There are mild osteoarthritic changes of the hips. IMPRESSION: 1. Thickening of the descending and sigmoid colon with mild haziness of the pericolic fat consistent with colitis. 2. Sigmoid diverticulosis without evidence of diverticulitis. 3. Thickening of the antrum and pyloric region of the stomach as well as the duodenum also with some minimal haziness of the fat in this area and mild thickening of the anterior pararenal fascia on the right consistent with gastritis and duodenitis. Dictated by: Conrado Valdivia MD 12/25/2019 05:18 Conrado Valdivia MD in [place] 12/25/2019 05:18
[2019-12-24 19:41] LABS: MANUAL DIFFERENTIAL MANUAL DIFFERENTIAL (MANUAL DIFF)
[2019-12-24 19:46] LABS: Occult Blood,Stool Positive (Negative)
[2019-12-24 19:50] LABS: Alanine Aminotransferase 51 U/L (12-78); Albumin Level 4.7 g/dl (3.5-5.0); Albumin/Globulin Ratio 1.7 (1.1-1.8); Alkaline Phosphatase 145 U/L (38-126); Anion Gap 15.9 mEq/L (5-15); Aspartate Amino Transferase 40 U/L (14-36); Bilirubin,Total 0.4 mg/dl (0.2-1.3); Blood Urea Nitrogen 34 mg/dl (7-17); Calcium 9.5 mg/dl (8.4-10.2); Carbon Dioxide 22 mmol/L (22.0-30.0); Chloride 104 mmol/L (98-107); Creatinine Clearance Estimated 42 mL/min (50-200); Estimated Glomerular Filt Rate 37 ml/min (>60); GFR (African American) 45 ML/MIN (>60); Globulin 2.8 g/dL (1.3-3.2); Glucose 143 mg/dl (74-100); Lipase 156 U/L (23-300); Potassium 3.9 mmoL/L (3.5-5.1); Sodium 138 mmol/L (136-145); Total Protein,Serum 7.5 g/dl (6.3-8.2)
[2019-12-24 19:57] LABS: Lymphocytes % 7 % (10-50); Monocytes % 2 % (2-9); Neutrophils % 87 % (42-76); Platelet Estimate Normal; RBC Morphology Normal; Total Cells Counted 100
[2019-12-24 20:09] VITALS: BP 134/59; PULSE 88; RESP 16; O2SAT 98
[2019-12-24 20:30] VITALS: BP 131/53; PULSE 87; RESP 16; O2SAT 98
[2019-12-24 21:00] VITALS: BP 119/53; PULSE 83; RESP 16; O2SAT 94
[2019-12-24 21:45] VITALS: BP 112/46; PULSE 80; RESP 18; O2SAT 94
[2019-12-24 21:59] VITALS: BP 134/75; PULSE 71; RESP 16; TEMP 36.7; O2SAT 98
== END 2019-12-24 22:01 | disposition home or self-care (01) ==
PROVIDERS: Emergency Medicine; Emergency Provider Emergency Medicine; PCP Pediatrics
DX: R10.32 Left lower quadrant pain (principal); I10 Essential (primary) hypertension; K21.9 Gastro-esophageal reflux disease without esophagitis; E03.9 Hypothyroidism, unspecified; Z88.5 Allergy status to narcotic agent; Z85.3 Personal history of malignant neoplasm of breast; Z79.899 Other long term (current) drug therapy
CPT/HCPCS: 74177; 80053; 82272; 83690; 85007; 85025; 87045; 96365; 96375; 99284; G0328; J2405; Q9967